=== PATIENT | female | born 1985 ===

== ENCOUNTER 2020-12-14 13:15 | Inpatient (IN) | payer OTHER ==
[~2020-12-14] VITALS: Ht 149.9 cm; Wt 3.2 kg
[2020-12-21] MEDS ORDERED: PRENATAL TABLE1 EAC1 PO (07:40)
[2020-12-21] MEDS ORDERED: IRON236 MG PO (07:41)
== END 2020-12-23 11:08 | disposition home or self-care (01) | DRG 788 ==
LOC: LDR 12-21 06:39 → OB/GYN 12-21 06:39 → O/R 12-21 06:39 → OB/GYN 12-21 19:33
PROVIDERS: ADMIT Obstetrics & Gynecology; ATTEND Obstetrics & Gynecology
PROC: 3E0P7VZ Introduction of Hormone into Female Reproductive, Via Natural or Artificial Opening (ICD-10-PCS; 2020-12-21)
PROC: 4A1HXFZ Monitoring of Products of Conception, Cardiac Rhythm, External Approach (ICD-10-PCS; 2020-12-21)
PROC: 10D00Z1 Extraction of Products of Conception, Low, Open Approach (ICD-10-PCS; principal; 2020-12-21 12:00)
DX: O45.8X3 Other premature separation of placenta, third trimester (principal); O24.424 Gestational diabetes mellitus in childbirth, insulin controlled; O99.824 Streptococcus B carrier state complicating childbirth; Z37.0 Single live birth; Z3A.39 39 weeks gestation of pregnancy; Z20.822 Contact with and (suspected) exposure to COVID-19